=== PATIENT | female | born 1960 | race Caucasian/White ===

== ENCOUNTER → 2024-01-14 07:00 | Outpatient (REF) | payer BC, SELFPAY ==
[2024-01-14 07:45] LABS: % Basophils 0.3 % (0-2); % Eosinophils 1.7 % (0-6); % Immature Granulocytes 0.5 % (0-0.5); % Lymphocytes 25.2 % (20.5-51.1); % Monocytes 11.7 % (1.7-9.3); % Neutrophils 60.6 % (42.2-75.2); Absolute Eosinophils 0.1 10^3/uL (0-0.7); Absolute Lymphocytes 1.6 10^3/uL (1.2-3.4); Absolute Monocytes 0.8 10^3/uL (0.1-0.6); Hematocrit 40.2 % (37.0-47.0); Hemoglobin 13.4 g/dL (12.0-16.0); Mean Corp Hgb Conc. 33.3 g/dL (33.0-37.0); Mean Corpuscular Hgb 30.4 pg (27.0-31.0); Mean Corpuscular Volume 91.2 fL (81.0-99.0); Mean Platelet Volume 9.4 fL (7.4-10.4); Nucleated Red Blood Cells % 0 %; Platelet Count 266 10^3/uL (130-400); Red Blood Cell Count 4.41 10^6/uL (4.20-5.40); Red Cell Dist. Width 12.8 % (11.5-14.5); White Blood Cell Count 6.5 10^3/uL (4.8-10.8)
[2024-01-14 14:12] LABS: ALT (SGPT) 43 U/L (0-35); AST (SGOT) 32 U/L (14-36); Albumin 4.9 g/dl (3.5-5.0); Alkaline Phosphatase 42 U/L (38-126); Blood Urea Nitrogen 25 mg/dl (7-17); Calcium 9.8 mg/dl (8.4-10.2); Carbon Dioxide 25 mmol/L (22-30); Chloride 102 mmol/L (98-107); Glucose 91 mg/dl (70-99); HDL Cholesterol 71 mg/dl; LDL Cholesterol, Calculated 69 mg/dl; Potassium 4.4 mmol/L (3.5-5.1); Sodium 140 mmol/L (135-145); Total Bilirubin 0.3 mg/dl (0.2-1.3); Total Cholesterol 156 mg/dl (50-199); Total Protein 7.3 g/dl (6.3-8.2); Triglyceride 81 mg/dl (10-149); Very Low Density Lipoprotein 16 mg/dl (0-30); eGFR > 60.00
== END ==
LOC: REG 07:00
PROVIDERS: ATTENDING PHYSICIAN Family Medicine
DX: I10 Essential (primary) hypertension (principal); E78.5 Hyperlipidemia, unspecified; R53.83 Other fatigue; E03.9 Hypothyroidism, unspecified
CPT/HCPCS: 36415; 80053; 80061; 84439; 84443; 85025

== ENCOUNTER → 2024-05-22 14:34 | Outpatient (REF) | payer OTHER, SELFPAY ==
[2024-05-22 16:20] LABS: % Basophils 0.5 % (0-2); % Eosinophils 2.3 % (0-6); % Immature Granulocytes 0.3 % (0-0.5); % Lymphocytes 26.8 % (20.5-51.1); % Monocytes 10.2 % (1.7-9.3); % Neutrophils 59.9 % (42.2-75.2); Absolute Eosinophils 0.2 10^3/uL (0-0.7); Absolute Lymphocytes 1.8 10^3/uL (1.2-3.4); Absolute Monocytes 0.7 10^3/uL (0.1-0.6); Absolute Neutrophils 3.9 10^3/uL (1.4-6.5); Hematocrit 39.8 % (37.0-47.0); Hemoglobin 13.5 g/dL (12.0-16.0); Mean Corp Hgb Conc. 33.9 g/dL (33.0-37.0); Mean Corpuscular Volume 91.3 fL (81.0-99.0); Mean Platelet Volume 9.9 fL (7.4-10.4); Nucleated Red Blood Cells % 0 %; Platelet Count 248 10^3/uL (130-400); Red Blood Cell Count 4.36 10^6/uL (4.20-5.40); Red Cell Dist. Width 12.1 % (11.5-14.5); White Blood Cell Count 6.6 10^3/uL (4.8-10.8)
[2024-05-22 16:34] LABS: ALT (SGPT) 55 U/L (0-35); AST (SGOT) 45 U/L (14-36); Albumin 4.8 g/dl (3.5-5.0); Alkaline Phosphatase 47 U/L (38-126); Blood Urea Nitrogen 22 mg/dl (7-17); Calcium 9.2 mg/dl (8.4-10.2); Carbon Dioxide 26 mmol/L (22-30); Chloride 101 mmol/L (98-107); Glucose 88 mg/dl (70-99); Sodium 137 mmol/L (135-145); Total Bilirubin 0.3 mg/dl (0.2-1.3); Total Protein 7.2 g/dl (6.3-8.2); eGFR > 60.00
[2024-05-22 16:39] LABS: C-Reactive Protein < 5.00 mg/L (0.0-10.00)
[2024-05-22 16:55] LABS: Vitamin D, 25-OH*** 48.8 ng/mL (30-80)
[2024-05-22 17:38] LABS: Erythrocyte Sed Rate 8 mm/hour (0-20)
[2024-05-23 09:10] LABS: Intact PTH 128.2 pg/ml (13.6-85.8)
== END ==
LOC: REG 14:34
PROVIDERS: ATTENDING PHYSICIAN Internal Medicine Rheumatology; FAMILY PHYSICIAN Family Medicine
DX: E55.9 Vitamin D deficiency, unspecified (principal); E83.30 Disorder of phosphorus metabolism, unspecified; M81.0 Age-related osteoporosis without current pathological fracture; Z13.820 Encounter for screening for osteoporosis
CPT/HCPCS: 36415; 80053; 82306; 82523; 83970; 85025; 85652; 86140

== ENCOUNTER → 2024-07-02 15:59 | Outpatient (REF) | payer OTHER, SELFPAY ==
[2024-07-02 17:04] LABS: Calcium 9.1 mg/dl (8.4-10.2)
== END ==
LOC: REG 15:59
PROVIDERS: ATTENDING PHYSICIAN Internal Medicine Rheumatology; FAMILY PHYSICIAN Family Medicine
DX: E21.3 Hyperparathyroidism, unspecified (principal)
CPT/HCPCS: 36415; 83519; 83970

== ENCOUNTER 2024-07-26 13:47 | Emergency (ER) | payer OTHER, SELFPAY ==
[2024-07-26 13:49] VITALS: BP 125/82
[2024-07-26 14:03] LABS: % Basophils 0.3 % (0-2); % Eosinophils 0.5 % (0-6); % Immature Granulocytes 0.3 % (0-0.5); % Lymphocytes 11.7 % (20.5-51.1); % Monocytes 7.6 % (1.7-9.3); % Neutrophils 79.6 % (42.2-75.2); Absolute Eosinophils 0.1 10^3/uL (0-0.7); Absolute Lymphocytes 1.5 10^3/uL (1.2-3.4); Absolute Neutrophils 10.2 10^3/uL (1.4-6.5); Hemoglobin 13.5 g/dL (12.0-16.0); Mean Corp Hgb Conc. 33.8 g/dL (33.0-37.0); Mean Corpuscular Hgb 30.3 pg (27.0-31.0); Mean Corpuscular Volume 89.7 fL (81.0-99.0); Nucleated Red Blood Cells % 0 %; Platelet Count 263 10^3/uL (130-400); Red Blood Cell Count 4.46 10^6/uL (4.20-5.40); Red Cell Dist. Width 12.5 % (11.5-14.5); White Blood Cell Count 12.8 10^3/uL (4.8-10.8)
[2024-07-26 14:16] LABS: ALT (SGPT) 40 U/L (0-35); AST (SGOT) 37 U/L (14-36); Albumin 4.6 g/dl (3.5-5.0); Alkaline Phosphatase 46 U/L (38-126); Blood Urea Nitrogen 13 mg/dl (7-17); Calcium 9.2 mg/dl (8.4-10.2); Carbon Dioxide 28 mmol/L (22-30); Chloride 100 mmol/L (98-107); Glucose 113 mg/dl (70-99); Lipase 112 U/L (23-300); Potassium 4.4 mmol/L (3.5-5.1); Sodium 140 mmol/L (135-145); Total Bilirubin 0.4 mg/dl (0.2-1.3); Total Protein 6.9 g/dl (6.3-8.2); eGFR > 60.00
[2024-07-26] MEDS: NSS 1000 IV (16:11)
[2024-07-26 16:13] VITALS: BP 133/72
--- NOTE | 2024-07-26 17:18 | ED.GENMED ---
History of Present Illness
General
Chief Complaint: Abdominal Symptoms
Source: patient and spouse
Exam Limitations: none
Time Seen by Provider: 07/26/24 15:07
Nursing documentation reviewed up to this point in time: agreed with
History of Present Illness
History of Present Illness:
The patient is a 63-year-old female who reports that she ate dinner out last night and within 2 hours, developed multiple episodes of vomiting and bloody diarrhea. Patient describes the blood as fairly bright and red. Patient also reports
associated diffuse abdominal cramping. Patient denies fever. She reports no one else got sick. Her reports that the shrimp she ate looked funny. Patient denies any chronic intestinal issues such as irritable bowel syndrome or
inflammatory bowel disease. Patient reports that her last bowel movement just look like mucousy blood without stool.
Past History
Past History
ED Past Medical History: Hypercholesterolemia, Hypothyroidism and Other (Pancreatic cysts)
ED Past Surgical History: Other (Partial nephrectomy, hemithyroidectomy)
Social History
Tobacco: Non-smoker
Alcohol: Other
Drug: None
Personal:
Living: with family
Employment: Other
Family History
Family History: Other
Review of Systems
Review of Systems
Allergies reviewed?: Yes
All Other Systems: ROS reviewed and negative except as documented in HPI and ROS
Constitutional: Reports no symptoms
EENT: Reports no symptoms
Respiratory: Reports no symptoms
Cardiac: Reports no symptoms
ABD/GI: Reports abdominal pain, nausea, vomiting, diarrhea and bloody stools
: Reports no symptoms
Musculoskeletal: Reports no symptoms
Skin: Reports no symptoms
Neurological: Reports no symptoms
Endocrine: Reports no symptoms
Hematologic/Lymphatic: Reports no symptoms
Psychiatric: Reports no symptoms
Phy Exam
Physical Exam
Physical Exam:
Physical Exam
General: no apparent distress, not acutely ill. Appears nontoxic, conversational
Neck: supple.
Heart: s1/s2 regular rate and rhythm, no murmur. equal radial pulses.
Lungs: no acute respiratory distress. clear bilaterally
Abdomen: Normal bowel sounds. Soft throughout. Nondistended. Mild diffuse abdominal tenderness without rebound or guarding.
Neuro: alert and oriented. no focal neurological deficits
Skin: no rash
Psychiatric: well kept. interactive and cooperative
Extremities: no edema.
Course
Orders/Labs/Results
Orders:
Orders
07/26/24 13:56
Type+Screen Urgent
Complete Blood Count/With Diff Urgent
Comprehensive Metabolic Panel Urgent
Lipase Urgent
07/26/24 14:03
ABO2 Urgent
BBK Wristband Number:
Associate notified that ABO2 has been ordered: BRENNON-ER
Date: 07/26/24
Time: 14:04
Presentation Manager ID: [id number]
07/26/24 15:43
0.9% Sodium Chloride 1000 ml [Nss] 1,000 ml IV BOLUS
07/26/24 16:16
STOOL [C difficile Antigen & Toxins] Urgent
GILLES Source: Feces/Stool
Specimen Description:
Date Specimen was Collected: 07/26/24
Time Specimen was Collected: 16:15
Stool Culture Urgent
GILLES Source: Feces/Stool
Specimen Description:
Date Specimen was Collected: 07/26/24
Time Specimen was Collected: 16:15
07/26/24 16:37
Ciprofloxacin HCl [Cipro] 500 mg PO NOW STA
Abnormal Lab Results
07/26/24
13:56
WBC 12.8 H 10^3/uL
(4.8-10.8)
Absolute Neuts (auto) 10.2 H 10^3/uL
(1.4-6.5)
Absolute Monos (auto) 1.0 H 10^3/uL
(0.1-0.6)
Neutrophils % 79.6 H %
(42.2-75.2)
Lymphocytes % 11.7 L %
(20.5-51.1)
Glucose 113 H mg/dl
(70-99)
AST 37 H U/L
(14-36)
ALT 40 H U/L
(0-35)
07/26/24 13:56
07/26/24 13:56
Vital Signs
Initial and Last Documented VS:
Initial Vital Signs
Temp Pulse Resp BP Pulse Ox
98.1 F 82 16 125/82 98
07/26/24 13:49 07/26/24 13:49 07/26/24 13:49 07/26/24 13:49 07/26/24 13:49
Last Documented Vital Signs
Temp Pulse Resp BP Pulse Ox
98.1 F 82 16 125/82 98
07/26/24 13:49 07/26/24 13:49 07/26/24 13:49 07/26/24 13:49 07/26/24 13:49
MDM/Problems Addressed
Differential Diagnosis Includes:
Acute viral enteritis, colitis, mesenteric ischemia
MDM/Problems Addressed:
Patient presents with acute nausea, vomiting and bloody diarrhea
*Pulse Oximetry
Patient hypoxic: no
*EKG
Interpreted by ED Provider?: NA
*Retail Service Lead Merchandiser Interpretation
Rate: normal
Interpretation: normal
Rhythm: sinus
*Critical Care Note
Total Time (30-74mins, 75-104mins- exclusive of procedures): Not Applicable
Data Reviewed
Review of Other/Old Records Reveals: Testing (Routine colonoscopy report reviewed from 2018 shows a normal colon)
Source: patient and spouse
Further Testing Considered But Not Given:
We discussed doing a CAT scan of the abdomen and pelvis multiple times, however, the patient and her adamantly do not want it. The patient's is at the bedside and says he is a radiologist and does not feel it will be very helpful.
Patient has no abdominal distention and appears well and comfortable. She is low risk for mesenteric ischemia. Patient and report that they will return if pain or bleeding increase for a CAT scan. They seem extremely reasonable and
assured me that they will monitor her symptoms. Patient states she is her own GI doctor that follows her for pancreatic cyst. Additionally, I will give her contact for [facility] and leave a Skipwith text for close gastroenterology
follow-up. Patient had a very small bloody bowel movement in the ED, but otherwise, had no significant diarrhea or bleeding. She is on no blood thinners, including aspirin and Plavix.
Patient Management
Social determinants of health affecting care: Living situation and Strong social support
ED Attending Note
-
Portions of this chart may have been created with voice recognition software.� Occasional wrong word or��sound alike� substitutions may have occurred due to the inherent limitations of voice recognition software.
Discharge Plan
Departure
Patient Disposition: Home (Routine Discharge)
Date of Disposition: 07/26/24
Time of Disposition: 16:39
Patient with high blood pressure during this ER visit?: No
Condition: Good
Covid-19: Not Applicable
Discharge Problem:
Abdominal pain, Bloody diarrhea
Instructions: Clear Liquid Diet, [place] Diet, Bloody Stools, Adult ED, Abdominal Pain
Prescriptions:
New
ciprofloxacin HCl 500 mg tablet
500 mg PO BID Qty: 14 0RF
Referrals:
Sami Aceves DO [Family Provider] -
Artie Decker MD [Active] - (Call if you continue to have bloody bowel movements. )
Activity Restrictions/Additional Instructions:
Please follow a clear liquid diet today and tomorrow. If you are feeling much better tomorrow evening, you can start a bland diet. If you continue to have blood in your stool (or from your rectum) for more than 24 hours, it is very important that
you see your welder or [facility] as soon as possible.
Interventions
Interventions:
*Risk Screen - Suicide Last Done: 07/26/24 13:49
*General Assessment Last Done: 07/26/24 13:49
*ED COVID-19 Vaccine History Last Done: 07/26/24 13:49
Discharge Date and Time
Print Language: KOREAN
[2024-07-26 17:24] VITALS: BP 127/74
[2024-07-26] MEDS: CIPRO 500 MG PO (17:44)
== END 2024-07-26 18:03 | disposition home or self-care (01) ==
LOC: EMR 13:47
PROVIDERS: EMERGENCY PHYSICIAN Emergency Medicine; FAMILY PHYSICIAN Family Medicine
DX: R10.9 Unspecified abdominal pain (principal); K92.1 Melena; R19.7 Diarrhea, unspecified; R11.2 Nausea with vomiting, unspecified; E03.9 Hypothyroidism, unspecified; E78.00 Pure hypercholesterolemia, unspecified; K86.2 Cyst of pancreas; Z90.5 Acquired absence of kidney; Z88.1 Allergy status to other antibiotic agents; Z91.048 Other nonmedicinal substance allergy status
CPT/HCPCS: 99284; 96360; 80053; 83690; 85025; 86850; 86900; 86901; 87045; 87046; 87324; 87427; 87449

== ENCOUNTER → 2024-10-27 12:22 | Outpatient (REF) | payer OTHER, SELFPAY | LOC: RAD 12:22 | PROVIDERS: ATTENDING PHYSICIAN Radiology Diagnostic Radiology; FAMILY PHYSICIAN Family Medicine | DX: M79.676 Pain in unspecified toe(s) (principal) | CPT/HCPCS: 73660 ==

== ENCOUNTER → 2024-11-05 06:30 | Outpatient (REF) | payer OTHER, SELFPAY ==
[2024-11-05 07:31] LABS: % Basophils 0.7 % (0-2); % Eosinophils 5.5 % (0-6); % Immature Granulocytes 0.2 % (0-0.5); % Lymphocytes 35.6 % (20.5-51.1); % Monocytes 12.4 % (1.7-9.3); % Neutrophils 45.6 % (42.2-75.2); Absolute Eosinophils 0.2 10^3/uL (0-0.7); Absolute Lymphocytes 1.6 10^3/uL (1.2-3.4); Absolute Monocytes 0.5 10^3/uL (0.1-0.6); Hemoglobin 13.3 g/dL (12.0-16.0); Mean Corp Hgb Conc. 33.3 g/dL (33.0-37.0); Mean Corpuscular Hgb 29.8 pg (27.0-31.0); Mean Corpuscular Volume 89.5 fL (81.0-99.0); Mean Platelet Volume 9.7 fL (7.4-10.4); Nucleated Red Blood Cells % 0 %; Platelet Count 227 10^3/uL (130-400); Red Blood Cell Count 4.47 10^6/uL (4.20-5.40); Red Cell Dist. Width 12.9 % (11.5-14.5); White Blood Cell Count 4.4 10^3/uL (4.8-10.8)
[2024-11-05 07:42] LABS: ALT (SGPT) 37 U/L (0-35); AST (SGOT) 30 U/L (14-36); Albumin 4.3 g/dl (3.5-5.0); Alkaline Phosphatase 40 U/L (38-126); Blood Urea Nitrogen 28 mg/dl (7-17); Calcium 8.6 mg/dl (8.4-10.2); Carbon Dioxide 28 mmol/L (22-30); Chloride 103 mmol/L (98-107); Glucose 108 mg/dl (70-99); Potassium 4.6 mmol/L (3.5-5.1); Sodium 140 mmol/L (135-145); Total Bilirubin 0.3 mg/dl (0.2-1.3); Total Protein 6.7 g/dl (6.3-8.2); eGFR > 60.00
[2024-11-05 07:46] LABS: C-Reactive Protein < 5.00 mg/L (0.0-10.00)
[2024-11-05 08:03] LABS: Vitamin D, 25-OH*** 44.6 ng/mL (30-80)
[2024-11-05 08:35] LABS: Erythrocyte Sed Rate 8 mm/hour (0-20)
[2024-11-06 20:10] LABS: CTx 33 pg/mL
[2024-11-07 09:40] LABS: Intact PTH 70.2 pg/ml (13.6-85.8)
== END ==
LOC: REG 06:30
PROVIDERS: ATTENDING PHYSICIAN Internal Medicine Rheumatology; FAMILY PHYSICIAN Family Medicine
DX: E55.9 Vitamin D deficiency, unspecified (principal); E83.30 Disorder of phosphorus metabolism, unspecified; M81.0 Age-related osteoporosis without current pathological fracture; Z13.820 Encounter for screening for osteoporosis
CPT/HCPCS: 36415; 80053; 82306; 82523; 83970; 85025; 85652; 86140

== ENCOUNTER → 2025-05-10 07:53 | Outpatient (REF) | payer BC, SELFPAY ==
[2025-05-10 09:37] LABS: ALT (SGPT) 29 U/L (0-35); AST (SGOT) 28 U/L (14-36); Albumin 4.5 g/dl (3.5-5.0); Alkaline Phosphatase 32 U/L (38-126); Blood Urea Nitrogen 17 mg/dl (7-17); Calcium 8.8 mg/dl (8.4-10.2); Carbon Dioxide 31 mmol/L (22-30); Chloride 106 mmol/L (98-107); Glucose 95 mg/dl (70-99); Potassium 5.6 mmol/L (3.5-5.1); Sodium 140 mmol/L (135-145); Total Protein 6.7 g/dl (6.3-8.2); eGFR > 60.00
== END ==
LOC: REG 07:53
PROVIDERS: ATTENDING PHYSICIAN Physician Assistant; FAMILY PHYSICIAN Family Medicine
DX: M81.0 Age-related osteoporosis without current pathological fracture (principal); R74.01 Elevation of levels of liver transaminase levels
CPT/HCPCS: 36415; 80053

== ENCOUNTER → 2025-07-13 06:40 | Outpatient (REF) | payer BC, SELFPAY ==
[2025-07-13 07:41] LABS: Hematocrit 38.9 % (37.0-47.0); Hemoglobin 12.5 g/dL (12.0-16.0); Mean Corp Hgb Conc. 32.1 g/dL (33.0-37.0); Mean Corpuscular Volume 91.7 fL (81.0-99.0); Nucleated Red Blood Cells % 0 %; Platelet Count 205 10^3/uL (130-400); Red Cell Dist. Width 12.8 % (11.5-14.5)
[2025-07-13 07:59] LABS: C-Reactive Protein < 5.00 mg/L (0.0-10.00)
[2025-07-13 08:01] LABS: ALT (SGPT) 26 U/L (0-35); AST (SGOT) 26 U/L (14-36); Albumin 4.2 g/dl (3.5-5.0); Alkaline Phosphatase 38 U/L (38-126); Blood Urea Nitrogen 14 mg/dl (7-17); Calcium 8.5 mg/dl (8.4-10.2); Carbon Dioxide 30 mmol/L (22-30); Chloride 107 mmol/L (98-107); Glucose 104 mg/dl (70-99); Sodium 142 mmol/L (135-145); Total Protein 6.7 g/dl (6.3-8.2); eGFR > 60.00
[2025-07-13 08:06] LABS: Potassium 4.8 mmol/L (3.5-5.1)
[2025-07-15 10:42] LABS: CTx 19 pg/mL
== END ==
LOC: REG 06:40
PROVIDERS: ATTENDING PHYSICIAN Internal Medicine Rheumatology; FAMILY PHYSICIAN Family Medicine
DX: M81.0 Age-related osteoporosis without current pathological fracture (principal); M81.8 Other osteoporosis without current pathological fracture
CPT/HCPCS: 36415; 80053; 82523; 85025; 86140

== ENCOUNTER → 2025-09-02 13:06 | Outpatient (REF) | payer BC, SELFPAY ==
[2025-09-02 14:30] LABS: Hematocrit 40.3 % (37.0-47.0); Hemoglobin 12.9 g/dL (12.0-16.0); Mean Corp Hgb Conc. 32.0 g/dL (33.0-37.0); Mean Corpuscular Volume 89.0 fL (81.0-99.0); Nucleated Red Blood Cells % 0 %; Platelet Count 263 10^3/uL (130-400); Red Cell Dist. Width 12.5 % (11.5-14.5)
== END ==
LOC: REG 13:06
PROVIDERS: ATTENDING PHYSICIAN Family Medicine
DX: R53.83 Other fatigue (principal)
CPT/HCPCS: 36415; 85025

== ENCOUNTER → 2025-09-22 07:00 | Outpatient (REF) | payer BC, SELFPAY ==
[2025-09-22 08:36] LABS: Glucose 85 mg/dl (70-99)
[2025-09-22 08:41] LABS: Glycohemoglobin (HgbA1c) 5.8 % (4.0-5.9)
== END ==
LOC: REG 07:00
PROVIDERS: ATTENDING PHYSICIAN Radiology Diagnostic Radiology; FAMILY PHYSICIAN Family Medicine
DX: R73.09 Other abnormal glucose (principal)
CPT/HCPCS: 36415; 82947; 83036